=== PATIENT | female | born 1970 | race Caucasian/White ===

== ENCOUNTER 2016-09-08 20:35 | Observation (INO) | payer OTHER ==
[~2016-09-08] VITALS: Ht 160 cm; Wt 72.6 kg
[~2016-09-08 20:35] MED LIST: BENTYL10 MG PO
[2016-09-08] MEDS ORDERED: LEVOTHYROXIN100 MCG PO (20:49)
[2016-09-08] MEDS ORDERED: METFORMIN500 MG PO (20:49)
[2016-09-08 21:29] LABS: URINE BILIRUBIN - DIPSTICK NEGATIVE (NEGATIVE); URINE BLOOD DIPSTICK NEGATIVE (NEGATIVE); URINE CLARITY CLEAR; URINE COLOR YELLOW; URINE GLUCOSE - DIPSTICK NEGATIVE (NEGATIVE); URINE KETONE NEGATIVE (NEGATIVE); URINE LEUK ESTERASE NEGATIVE (NEGATIVE); URINE NITRITE - DIPSTICK NEGATIVE (Negative); URINE PROTEIN - DIPSTICK NEGATIVE (NEG-TRACE); URINE SPECIFIC GRAVITY 1.025; URINE UROBILINOGEN - DIPSTICK 0.2 E.U./dL (0.2)
[2016-09-08 21:36] LABS: HEMATOCRIT 42.2 % (37.0-47.0); HEMOGLOBIN 14.7 g/dl (12.0-16.0); IMMATURE GRANULOCYTES 0.3 % (0.0-1.0); MEAN CELL VOLUME 90.6 fL CALC (80.0-100.0); MEAN CORPUSCULAR HGB 31.5 pG CALC (26.0-32.0); MEAN CORPUSCULAR HGB CONC 34.8 g/L CALC (32.0-36.0); NEUT# 4.5 thou/uL (2.00-7.15); RED BLOOD COUNT 4.66 mill/uL (4.20-5.60); RED CELL DISTRI WIDTH 12.3 % (11.5-15.5)
[2016-09-08 21:42] LABS: ALBUMIN 4.9 g/dL (3.2-5.0); ALKALINE PHOSPHATASE 93 u/l (38-126); AMYLASE 71 u/l (30-110); ANION GAP 17 (6-22 (CALC)); BILIRUBIN, TOTAL 0.5 mg/dL (0.0-1.4); BUN 11 mg/dL (7-17); BUN/CREATININE RATIO 14 (12-20 (CALC)); CALCIUM 9.9 mg/dL (8.4-10.2); CARBON DIOXIDE 26 mmol/l (22-30); CHLORIDE 105 mmol/l (95-108); CREATININE 0.8 mg/dL (0.5-1.0); GFR > 60 ML/MIN (>=60 (CALC)); GFR FOR AFR.AMER. > 60 ML/MIN (>=60 (CALC)); GLUCOSE 98 mg/dL (65-105); LIPASE 195 u/l (23-300); POTASSIUM 4.2 mmol/l (3.5-5.1); SGOT/AST 34 u/l (14-36); SGPT/ALT 41 u/l (9-52); SODIUM 145 mmol/l (137-146); TOTAL PROTEIN 7.9 g/dL (6.3-8.2)
[2016-09-08 21:43] LABS: ACT PARTIAL THROMBO TIME 29.6 SECONDS (20.0-32.5); PROTHROMBIN TIME 10.4 SECONDS (9.0-12.5)
[2016-09-08 21:54] LABS: MYOGLOBIN 38 ng/mL (0 - 62)
[2016-09-08 22:50] VITALS: BP 128/79
[2016-09-09 04:32] VITALS: BP 104/61
[2016-09-09 08:21] VITALS: BP 104/65
== END 2016-09-09 12:00 | disposition home or self-care (01) | DRG 313 ==
LOC: ENPENDDIS → ED 20:35 → ED-I 22:00 → ED 22:18 → MS2 22:19
PROVIDERS: Emergency Medicine; ADMIT Internal Medicine; ATTEND Internal Medicine
DX: R07.9 Chest pain, unspecified (principal); I38 Endocarditis, valve unspecified; K76.0 Fatty (change of) liver, not elsewhere classified; E78.5 Hyperlipidemia, unspecified; E11.9 Type 2 diabetes mellitus without complications; I10 Essential (primary) hypertension; E03.9 Hypothyroidism, unspecified; Z79.84 Long term (current) use of oral hypoglycemic drugs; Z87.891 Personal history of nicotine dependence
CPT/HCPCS: G0378

== ENCOUNTER 2016-10-03 12:38 | Emergency (ER) | payer OTHER ==
[~2016-10-03] VITALS: Ht 160 cm; Wt 80.0 kg
[~2016-10-03 12:38] MED LIST changes: +LEVOTHYROXIN100 MCG PO; +METFORMIN500 MG PO
[2016-10-03] MEDS ORDERED: MOTRIN800 MG PO (13:08)
[2016-10-03 14:13] VITALS: BP 131/88
== END 2016-10-03 14:13 | disposition home or self-care (01) | DRG 563 ==
LOC: ED 12:38
DX: S82.62XA Displaced fracture of lateral malleolus of left fibula, initial encounter for closed fracture (principal); E03.9 Hypothyroidism, unspecified; E11.9 Type 2 diabetes mellitus without complications; E78.5 Hyperlipidemia, unspecified; X50.1XXA Overexertion from prolonged static or awkward postures, initial encounter; Y93.89 Activity, other specified; Y92.009 Unspecified place in unspecified non-institutional (private) residence as the place of occurrence of the external cause

== ENCOUNTER 2017-10-03 19:44 | Emergency (ER) | payer OTHER ==
[~2017-10-03] VITALS: Ht 160 cm; Wt 75.4 kg
[~2017-10-03 19:44] MED LIST changes: +MOTRIN800 MG PO
[2017-10-03] MEDS ORDERED: ASPIRIN LOW DOS81 M1 PO (20:10)
[2017-10-03] MEDS ORDERED: VITAMIN B-122000 MCG PO (20:11)
[2017-10-03] MEDS ORDERED: PRAVASTATIN10 MG PO (20:11)
[2017-10-03] MEDS ORDERED: ANTIBIOTIC PO (20:13)
[2017-10-03 22:44] VITALS: BP 138/75
== END 2017-10-03 22:44 | disposition home or self-care (01) | DRG 607 ==
LOC: ED 19:44
DX: R22.0 Localized swelling, mass and lump, head (principal); T37.0X5A Adverse effect of sulfonamides, initial encounter; I10 Essential (primary) hypertension; E11.9 Type 2 diabetes mellitus without complications; K76.0 Fatty (change of) liver, not elsewhere classified

== ENCOUNTER 2020-05-24 10:21 | Inpatient (IN) | payer BC ==
[~2020-05-24] VITALS: Ht 160 cm; Wt 70.0 kg
[~2020-05-24 10:21] MED LIST changes: +ANTIBIOTIC PO; +ASPIRIN LOW DOS81 M1 PO; +PRAVASTATIN10 MG PO; +VITAMIN B-122000 MCG PO
--- NOTE | 2020-05-24 10:30 | NUR ---
PT TO ROOM VIA W//Cheryl URBANO NOTIFIED
[2020-05-24 11:11] LABS: HEMOGLOBIN 14.4 g/dl (12.0-16.0); IMMATURE GRANULOCYTES 0.3 % (0.0-5.0); MEAN CELL VOLUME 89.9 fL CALC (80.0-100.0); MEAN CORPUSCULAR HGB 30.8 pG CALC (26.0-32.0); MEAN CORPUSCULAR HGB CONC 34.3 g/dL CAL (32.0-36.0); NEUT# 6.01 thou/uL (2.00-7.15); RED BLOOD COUNT 4.67 mill/uL (4.20-5.60)
[2020-05-24 11:13] LABS: GFR > 60 ML/MIN (>=60 (CALC)); GFR FOR AFR.AMER. > 60 ML/MIN (>=60 (CALC))
--- NOTE | 2020-05-24 11:30 | NUR ---
Reassessment of patient completed. No distress noted.
[2020-05-24 11:33] LABS: ALBUMIN 4.9 g/dL (3.2-5.0); ALKALINE PHOSPHATASE 67 u/l (38-126); BILIRUBIN, TOTAL 0.6 mg/dL (0.0-1.4); BUN 13 mg/dL (7-17); BUN/CREATININE RATIO 18 (12-20 (CALC)); C-REACTIVE PROTEIN 8.2 mg/dL (0-0.9); CARBON DIOXIDE 26 mmol/l (22-30); CHLORIDE 95 mmol/l (95-108); CREATININE 0.7 mg/dL (0.5-1.0); GFR > 60 ML/MIN (>=60 (CALC)); GFR FOR AFR.AMER. > 60 ML/MIN (>=60 (CALC)); LIPASE 95 u/l (23-300); POTASSIUM 3.4 mmol/l (3.5-5.1); SGOT/AST 32 u/l (14-36); TOTAL PROTEIN 8.4 g/dL (6.3-8.2)
[2020-05-24 11:36] LABS: HCG SERUM/URINE (NEG/POS) NEGATIVE (NEGATIVE)
[2020-05-24 11:37] LABS: ANION GAP 13 (6-22 (CALC)); SODIUM 131 mmol/l (137-146)
--- NOTE | 2020-05-24 12:30 | NUR ---
Reassessment of patient completed. No distress noted.
--- NOTE | 2020-05-24 13:30 | NUR ---
Reassessment of patient completed. No distress noted.
--- NOTE | 2020-05-24 14:22 | NUR ---
Reassessment of patient completed. No distress noted.
[2020-05-24] MEDS ORDERED: LEVOTHYROXIN100 MCG PO (14:49)
--- NOTE | 2020-05-24 15:03 | NUR ---
Reassessment of patient completed. No distress noted.
--- NOTE | 2020-05-24 15:05 | NUR ---
ATTEMPTED TO CALL REPORT NO ANSWER
--- NOTE | 2020-05-24 15:13 | NUR ---
REPORT RECEIVED FROM LEONA ANGUIANO.
--- NOTE | 2020-05-24 15:13 | NUR ---
REPORT CALLED TO TATYANA
[2020-05-24 15:26] VITALS: BP 116/56
--- NOTE | 2020-05-24 15:26 | NUR ---
PT ARRIVED TO MED/SURG ROOM 266 IN STABLE CONDITION VIA STRETCHER ACCOMPANIED BY ANNMARIERN;PT AMBULATED TO BEDSIDE WITH A STEADY GAIT;WT AND VS OBTAINED AT THIS TIME;PT A&O X4, ORIENTED TO ROOM AND CALL LIGHT SYSTEM;PT REPORTS INCREASED SOB,COUGH,VOMIT, AND LOSS OF TASTE & SMELL X8 DAYS AFTER TRIP TO [place] WITH FAMILY;PT DENIES ANY CURRENT PAIN OR DISCOMFORTS,PAIN SCALE AND REPORTING EDUCATED;ASSESSMENT COMPLETED;RESPIRATIONS SHALLOW ON O2 @ 2L VIA NC,DIMINISHED LUNG SOUNDS NOTED;NON-PRODUCTIVE COUGH;ABDOMEN SOFT ON PALPATION AND ACTIVE IN ALL 4 QUADRANTS,LAST BM 05/24/20;STRONG PEDAL PULSES;SKIN INTACT;TELE MONITORING IN PLACE;#20G TO LAC FLUSHED AND PATENT,SITE APPEARS HEALTHY;ALLERGY BAND APPLIED TO RIGHT ARM;PT DENIES ANY ADDITIONAL NEEDS AND IS ENCOURAGED TO CALL FOR ASSISTANCE IF NEEDED;FALL PRECAUTIONS IN PLACE WITH BED IN THE LOWEST POSITION AND CALL LIGHT IN REACH;WILL CONTINUE TO MONITOR
--- NOTE | 2020-05-24 15:38 | NUR ---
THE MON WAS POWERED DOWN AND I WAS UNABLE TO RETRIEVE VITALS
--- NOTE | 2020-05-24 16:32 | NUR ---
CAMRYN,ANRP AT BEDSIDE
[2020-05-24 16:53] LABS: URINE BILIRUBIN - DIPSTICK NEGATIVE (NEGATIVE); URINE BLOOD DIPSTICK TRACE-LYSED (NEGATIVE); URINE COLOR YELLOW; URINE GLUCOSE - DIPSTICK NEGATIVE (NEGATIVE); URINE KETONE 15 mg/dL (NEGATIVE); URINE LEUK ESTERASE NEGATIVE (NEGATIVE); URINE NITRITE - DIPSTICK NEGATIVE (Negative); URINE PH 6.5 (4.5-8.0); URINE PROTEIN - DIPSTICK TRACE mg/dL (NEG-TRACE); URINE UROBILINOGEN - DIPSTICK 0.2 E.U./dL (0.2)
--- NOTE | 2020-05-24 17:56 | NUR ---
PT APPEARS TO BE SLEEPING IN SEMI FOWLERS POSITION,WAKES EASILY TO VERBAL STIMULI;PT DENIES ANY CURRENT PAIN OR NEEDS;TELE MONITORING IN PLACE;IV SITE PATENT;PT ENCOURAGED TO CALL FOR ASSISTANCE IF NEEDED;CALL LIGHT IN REACH;WILL CONTINUE TO MONITOR
[2020-05-24 19:00] VITALS: BP 108/57
--- NOTE | 2020-05-24 19:18 | NUR ---
SBAR REPORT RECEIVED FROM FOREST WAGGONER
--- NOTE | 2020-05-24 22:55 | NUR ---
RESTING QUIETLY IN BED WATCHING TV. NO DISTRESS NOTED, DENIES PAIN AT THIS TIME. NO CONCERNS EXPRESSED. CALL LIGHT WITHIN REACH
[2020-05-25] VITALS (7 sets, daily range): BP systolic 90–112; BP diastolic 39–63
--- NOTE | 2020-05-25 00:50 | NUR ---
PATIENT RESTING QUIETLY EYES CLOSED. BED IN LOW POSITION, LOCKED. NO DISTRESS NOTED. CALL LIGHT WITHIN REACH.
--- NOTE | 2020-05-25 04:38 | NUR ---
RESTING IN BED. DENIES PAIN AT THIS TIME. NO DISTRESS NOTED. NO CONCERNS EXPRESSED. CALL LIGHT WITHIN REACH.
[2020-05-25 05:08] LABS: HEMATOCRIT 41.9 % (37.0-47.0); IMMATURE GRANULOCYTES 0.5 % (0.0-5.0); MEAN CELL VOLUME 91.3 fL CALC (80.0-100.0); MEAN CORPUSCULAR HGB 30.5 pG CALC (26.0-32.0); MEAN CORPUSCULAR HGB CONC 33.4 g/dL CAL (32.0-36.0); NEUT# 4.24 thou/uL (2.00-7.15); RED BLOOD COUNT 4.59 mill/uL (4.20-5.60); RED CELL DISTRI WIDTH 13.2 % (11.5-15.5)
[2020-05-25 05:43] LABS: ALBUMIN 4.2 g/dL (3.2-5.0); ALKALINE PHOSPHATASE 56 u/l (38-126); ANION GAP 12 (6-22 (CALC)); BILIRUBIN, TOTAL 0.5 mg/dL (0.0-1.4); BUN 11 mg/dL (7-17); BUN/CREATININE RATIO 17 (12-20 (CALC)); C-REACTIVE PROTEIN 7.4 mg/dL (0-0.9); CARBON DIOXIDE 27 mmol/l (22-30); CHLORIDE 101 mmol/l (95-108); CREATININE 0.6 mg/dL (0.5-1.0); GFR > 60 ML/MIN (>=60 (CALC)); GFR FOR AFR.AMER. > 60 ML/MIN (>=60 (CALC)); POTASSIUM 3.8 mmol/l (3.5-5.1); SGOT/AST 28 u/l (14-36); SODIUM 137 mmol/l (137-146)
--- NOTE | 2020-05-25 07:57 | NUR ---
RECIEVED REPORT FROM LEONA JEAN. PT RESTING IN SEMI FOWLERS POSITION. PT IS A/O X3. ASSESSMENT AND VITALS COMPLETED. BP 90/54, HR 70, O2 94% ON 2L NC. RESPIRATIONS ARE EVEN AND UNLABORED WITH NO DISTRESS NOTED. HEART RHYTHM IS NORMAL WITH TELE IN PLACE, SR PER ER MONITORING. BOWEL SOUNDS ARE ACTIVE IN ALL QUADRANTS, PT REPORTS HAVING DIARRHEA THIS MORNING. #20G IN RAC FLUSHED, SITE APPEARS HEALTHY AND PATENT. RADIAL AND PEDAL PULSES ARE SRONG.SKIN IS WARM AND INTACT. PT COMPLAINS OF 5/10 PAIN IN BACK, TYLENOL TO BE ADMINISTERED. PT DENIES OF OTHER PAINS OR DISCOMFORTS. ALL SAFTEY AND ISOLATION PRECAUTIONS ARE IN PLACE. WILL CONTINUE TO MONITOR.
--- NOTE | 2020-05-25 12:03 | NUR ---
PT RESTING IN SEMI FOWLERS POSITION. RESPIRATIONS ARE EVEN AND UNLABORED ON 2L NC. PT DENIES OF ANY PAINS OR DISCOMFORTS AT THIS TIME. IV ANTIBOTICS INFUSING WITH EASE, SITE APPEARS HEALTHY AND PATENT. TELE MONITORING IN PLACE. ALL SAFETY PRECAUTIONS ARE IN PLACE WITH CALL LIGHT IN REACH. WILL CONTINUE TO MONITOR
--- NOTE | 2020-05-25 17:12 | NUR ---
PT RESTING IN SEMI FOWLERS POSITION. RESPIRATIONS ARE EVEN AND UNLABORED ON 2L NC. #20G IN RFA REMAINS HEALTHY AND PATENT. TELE MONITORING IN PLACE, SR PER ER MONITORING. PT DENIES OF ANY PAINS OR DISCOMFORTS. ALL SAFETY PRECAUTIONS ARE IN PLACE WITH CALL LIGHT IN REACH. WILL CONTINUE TO MONITOR
--- NOTE | 2020-05-25 23:14 | NUR ---
PT RESTING QUIETLY IN BED, PT REPORTS " I AM FREEZING, I JUST CAN'T WARM UP" THIS NURSE NOTED THAT PTS FACE WAS VERY FLUSHED AND HER SKIN WAS WARM TO THE TOUCH. TEMPERATURE CHECKED, 100.4. ADMINSTRATED TYLENOL PO. MEDICATION WAS EFFECTIVE, TEMP RECHECK WAS 98.4. WILL CONTINUE TO MONITOR
--- NOTE | 2020-05-26 01:12 | NUR ---
PT RESTING IN BED AT THIS TIME. C/O NAUSEA EARLIER AND WAS TREATED WITH ZOFRAN. PT C/O FOUL SMELLING FREQUENT DIARRHEA. STOOL SAMPLE OBTAINED FOR CULTURE TO RULE OUT C-DIFF. PENDING RESULTS. TEMPERATURE IN 98.7 AND WNL. PT INDICATES SHE IS FEELING BETTER SINCE THE ADMINSTRATION OF THE ZOFRAN AND TYLENOL. WILL CONTINUE TO MONITOR.
--- NOTE | 2020-05-26 04:00 | NUR ---
PT IS RESTING QUIETLY WITH HER EYES CLOSED. NO COMPLAINTS VOICED AT THIS TIME. NO S/S OF DISTRESS. DENIES SHORTNESS OF BREATH. NON-PRODUCTIVE COUGH. IV REMAINS TO RAC, FLUSHES WELL. WILL MONITOR
[2020-05-26 04:30] VITALS: BP 106/63
--- NOTE | 2020-05-26 05:28 | NUR ---
NURSE WAS ADVISED BY ASSIGNED FINANCE VICE PRESIDENT THAT PT WAS RUNNING A LOW GRADE TEMP OF 99.1. PT IS ASYMPTOMATIC FOR TEMP. WILL MONITOR FOR ANY INCREASE IN TEMP.
[2020-05-26 06:00] LABS: HEMATOCRIT 40.4 % (37.0-47.0); HEMOGLOBIN 13.2 g/dl (12.0-16.0); MEAN CELL VOLUME 92.4 fL CALC (80.0-100.0); MEAN CORPUSCULAR HGB 30.2 pG CALC (26.0-32.0); MEAN CORPUSCULAR HGB CONC 32.7 g/dL CAL (32.0-36.0); RED BLOOD COUNT 4.37 mill/uL (4.20-5.60); RED CELL DISTRI WIDTH 13.2 % (11.5-15.5)
[2020-05-26 06:07] LABS: BUN 11 mg/dL (7-17); BUN/CREATININE RATIO 15 (12-20 (CALC)); CARBON DIOXIDE 27 mmol/l (22-30); CHLORIDE 100 mmol/l (95-108); CREATININE 0.7 mg/dL (0.5-1.0); GFR > 60 ML/MIN (>=60 (CALC)); GFR FOR AFR.AMER. > 60 ML/MIN (>=60 (CALC)); MAGNESIUM 2.3 mg/dL (1.6-2.3); SODIUM 136 mmol/l (137-146)
[2020-05-26 06:08] LABS: ANION GAP 13 (6-22 (CALC)); POTASSIUM 3.5 mmol/l (3.5-5.1)
[2020-05-26 07:41] VITALS: BP 107/55
--- NOTE | 2020-05-26 07:41 | NUR ---
PATIENT RESTING IN BED AT THIS TIME CALL LIGHT WITHIN REACH DENIES ANY PAIN. SIDERAILS UP X2 CONTRACT MANAGER DONE SEE INTERVENTIONS AT THIS TIME.
[2020-05-26 11:10] VITALS: BP 89/52
--- NOTE | 2020-05-26 12:15 | NUR ---
PATIENT RESTING IN BED DENIES ANY NEEDS CURRENTLY AT THIS TIME SIDERAILS UP CALL LIGHT WITHIN REACH.
--- NOTE | 2020-05-26 15:53 | NUR ---
PATIENT RESTING IN BED AT THIS TIME PATIENT DENIES ANY PAIN AT THIS TIME AND DENIES ANY NEEDS. PATIENT STATES SHE IS NOT SHORT OF BREATH AND FEEL "A LITTLE BETTER". CALL LIGHT WITHIN REACH SIDERAILS UP X2 PATIENT REMAINS IN ISOLATION DUE OT COVID-19 POSITIVE.
[2020-05-26 16:10] VITALS: BP 105/63
--- NOTE | 2020-05-26 19:33 | NUR ---
PHYSICAL ASSESMENT COMPLETE. PT CURRENTLY DENIES PAIN OR DISCOMFORT. SCHEDULED MEDICATIONS AND PRN MEDICATION ADMINISTERED, SEE E-MAR. PT DENIES ANY NEEDS AT THIS TIME. PLAN OF CARE REVIEWED, PT DENIES QUESTIONS, VERBALIZES UNDERSTANDING. ITEMS WITHIN REACH, BED LOCKED IN LOW POSITION W/ BEDRAILS UP X2. CALL JORGENSEN WITHIN REACH, AGREES TO CALL PRN.
[2020-05-26 20:00] VITALS: BP 102/64
[2020-05-26 22:05] LABS: C. DIFFICILE TOXIN A&B NEGATIVE (NEGATIVE)
[2020-05-26 23:50] VITALS: BP 94/52
--- NOTE | 2020-05-27 00:08 | NUR ---
CPT LAYING IN BED WITH EYES CLOSED, APPEARS TO BE SLEEPING, APPEARS COMFORTABLE AND IN NO DISTRESS. RESPIRATIONS REGULAR AND UNLABORED. ITEMS REMAIN WITHIN REACH, CALL JORGENSEN REMAINS WITHIN REACH. BED REMAINS LOCKED AND IN LOW POSITION WITH BEDRAILS UP X2. WILL CONTINUE TO MONITOR.
[2020-05-27 03:50] VITALS: BP 88/54
--- NOTE | 2020-05-27 04:02 | NUR ---
PT RESTING IN BED, NO SIGNS OF DISTRESS NOTED, RESP EVEN AND UNLABORED. PT VOICES NO NEEDS OR COMPLAINTS AT THIS TIME. CALL LIGHT IN REACH, CONTINUE TO MONITOR.
[2020-05-27 04:53] LABS: HEMATOCRIT 39.1 % (37.0-47.0); IMMATURE GRANULOCYTES 0.9 % (0.0-5.0); MEAN CELL VOLUME 92.7 fL CALC (80.0-100.0); MEAN CORPUSCULAR HGB 30.8 pG CALC (26.0-32.0); MEAN CORPUSCULAR HGB CONC 33.2 g/dL CAL (32.0-36.0); NEUT# 6.63 thou/uL (2.00-7.15); RED BLOOD COUNT 4.22 mill/uL (4.20-5.60); RED CELL DISTRI WIDTH 13.2 % (11.5-15.5)
[2020-05-27 05:15] LABS: ALKALINE PHOSPHATASE 51 u/l (38-126); BILIRUBIN, TOTAL 0.6 mg/dL (0.0-1.4); BUN 10 mg/dL (7-17); BUN/CREATININE RATIO 17 (12-20 (CALC)); C-REACTIVE PROTEIN 7.5 mg/dL (0-0.9); CARBON DIOXIDE 27 mmol/l (22-30); CHLORIDE 100 mmol/l (95-108); CREATININE 0.6 mg/dL (0.5-1.0); GFR > 60 ML/MIN (>=60 (CALC)); GFR FOR AFR.AMER. > 60 ML/MIN (>=60 (CALC)); POTASSIUM 3.7 mmol/l (3.5-5.1); SGOT/AST 26 u/l (14-36); TOTAL PROTEIN 6.8 g/dL (6.3-8.2)
[2020-05-27 05:31] LABS: ANION GAP 12 (6-22 (CALC)); SODIUM 135 mmol/l (137-146)
[2020-05-27 08:00] VITALS: BP 98/50
--- NOTE | 2020-05-27 08:00 | NUR ---
PATIENT RESTING IN THE BED AXOX3, DENIES PAIN. O2 NC INUSE, NO RESP DISTRESS NOTED AT THIS TIME. ENCOURAGED TO USE ISSU. REPOSITIONED FOR COMFORT. SIDE RAILS UP CALL LIGHT IN REACH BED LOCKED IN LOW POSITION, ALL SAFETY MEASURES IN PLACE. WILL CONTINUE TO MONITOR THE PATIENT.
[2020-05-27 11:30] VITALS: BP 114/50
--- NOTE | 2020-05-27 12:30 | NUR ---
PATIENT SITTING UP IN BED EATING LUNCH, NO RESP DISTRESS NOTED AT THIS TIME. WILL CONTINUE TO MONIOTR THE PATIENT.
--- NOTE | 2020-05-27 13:58 | NUR ---
C/O PAIN MED PER ORDER. EDUCATED ON USE OF INHALER. WILL CONTINUE TO MONIOTR THE PATIENT.
[2020-05-27 15:42] VITALS: BP 83/44
--- NOTE | 2020-05-27 16:09 | NUR ---
PT STATES SHE IS FEELING BETTER NOW'THE tYLENOL HELPED' . EDUCATED ON IV MEDICATION, AND IV FLIUDS. REPOSITIOEND FOR COMFORT. NO RESP DISTRESS NOTED AT THIS TIME. WILL CONTINUE TO MONIOTR THE PATIENT.
[2020-05-27 20:00] VITALS: BP 104/66
[2020-05-28] VITALS: BP 99/58
[2020-05-28 04:00] VITALS: BP 116/67
[2020-05-28 05:41] LABS: ALBUMIN 3.8 g/dL (3.2-5.0); ALKALINE PHOSPHATASE 52 u/l (38-126); ANION GAP 11 (6-22 (CALC)); BILIRUBIN, TOTAL 0.6 mg/dL (0.0-1.4); BUN 12 mg/dL (7-17); BUN/CREATININE RATIO 20 (12-20 (CALC)); CARBON DIOXIDE 29 mmol/l (22-30); CHLORIDE 102 mmol/l (95-108); CREATININE 0.6 mg/dL (0.5-1.0); GFR > 60 ML/MIN (>=60 (CALC)); GFR FOR AFR.AMER. > 60 ML/MIN (>=60 (CALC)); POTASSIUM 4.1 mmol/l (3.5-5.1); SGOT/AST 24 u/l (14-36); SODIUM 138 mmol/l (137-146); TOTAL PROTEIN 6.7 g/dL (6.3-8.2)
[2020-05-28 05:43] LABS: HEMATOCRIT 40.5 % (37.0-47.0); MEAN CELL VOLUME 94.6 fL CALC (80.0-100.0); MEAN CORPUSCULAR HGB 30.4 pG CALC (26.0-32.0); MEAN CORPUSCULAR HGB CONC 32.1 g/dL CAL (32.0-36.0); RED BLOOD COUNT 4.28 mill/uL (4.20-5.60); RED CELL DISTRI WIDTH 13.2 % (11.5-15.5)
[2020-05-28 08:02] VITALS: BP 116/67
--- NOTE | 2020-05-28 08:08 | NUR ---
PT RESTING IN THE BED AXOX3, NOTED NO RESP DISTRESS NO SOB. PATIENT DENIES PAIN AT THIS TIME. O22L PL OX 90% INCREASED O2 TO 3L O2 SAT 94%. INCOURAGED TO USE ISSU. IV INFUSING. DENIES NAUSEA DENIES VOMITING. REPOSITIOEND FOR COMFORT, SIDE RAILS UP CALL LIGHT IN REACH, BED LOCKED IN LOW POSITION. ALL SAFTY MEASURES IN PLACE. WILL CONTINUE TO MONIOTR THE PATIENT.
[2020-05-28 10:56] VITALS: BP 86/52
--- NOTE | 2020-05-28 11:58 | NUR ---
PT RESTING COMFORTABLE NO DISTRESS NOTED AT THIS TIME. WILL CONTINUE TO MONITOR THE PATIENT.
--- NOTE | 2020-05-28 15:52 | NUR ---
IV TO HL PER ORDER.
[2020-05-28 16:04] VITALS: BP 104/65
[2020-05-28 19:00] VITALS: BP 122/60
[2020-05-29] VITALS: BP 123/74
[2020-05-29 04:00] VITALS: BP 127/65
[2020-05-29 05:45] LABS: HEMATOCRIT 40.3 % (37.0-47.0); HEMOGLOBIN 12.7 g/dl (12.0-16.0); MEAN CELL VOLUME 94.2 fL CALC (80.0-100.0); MEAN CORPUSCULAR HGB 29.7 pG CALC (26.0-32.0); MEAN CORPUSCULAR HGB CONC 31.5 g/dL CAL (32.0-36.0); NEUT# 4.17 thou/uL (2.00-7.15); RED BLOOD COUNT 4.28 mill/uL (4.20-5.60); RED CELL DISTRI WIDTH 13.6 % (11.5-15.5)
[2020-05-29 05:48] LABS: IMMATURE GRANULOCYTES 6.6 % (0.0-5.0)
[2020-05-29 05:58] LABS: ALBUMIN 3.5 g/dL (3.2-5.0); ALKALINE PHOSPHATASE 51 u/l (38-126); ANION GAP 13 (6-22 (CALC)); BILIRUBIN, TOTAL 0.6 mg/dL (0.0-1.4); BUN 14 mg/dL (7-17); BUN/CREATININE RATIO 23 (12-20 (CALC)); CARBON DIOXIDE 25 mmol/l (22-30); CHLORIDE 102 mmol/l (95-108); CREATININE 0.6 mg/dL (0.5-1.0); GFR > 60 ML/MIN (>=60 (CALC)); GFR FOR AFR.AMER. > 60 ML/MIN (>=60 (CALC)); POTASSIUM 3.9 mmol/l (3.5-5.1); SGOT/AST 22 u/l (14-36); SODIUM 136 mmol/l (137-146); TOTAL PROTEIN 6.1 g/dL (6.3-8.2)
[2020-05-29 08:57] VITALS: BP 102/62
--- NOTE | 2020-05-29 08:57 | NUR ---
PT SITTING IN BED. A&O X3. NO DISTRESS NOTED. FLUSHED APPEARANCE NOTED BUT AFEBRILE AT THIS TIME. O2 VIA NC @3L, SUSTAINING 91-92%. ENCOURAGED PT TO USE I.S DEVICE. PT DEMONSTARTING PROPER USE OF DEVICE. PT ACHIEVEING 500, GOAL SET AT 1000. X10 REPITITIONS. PT ALSO ENCOURGAED TO SIT IN CHAIR. CLEAR/DIMINISHED BREATH SOUNDS UPON AUSCULTATION. #20 RAC HEALTHY AND PATENT. TEAM LEADER SURGERY IN PLACE. ASSESSMENT COMPLETED. DISCUSSED POC. CALL LIGHT LEFT WITHIN REACH.
--- NOTE | 2020-05-29 09:37 | NUR ---
DR LÓPEZ AND Shaylee SWAN APRN AT BEDSIDE
[2020-05-29 10:30] VITALS: BP 97/46
--- NOTE | 2020-05-29 11:29 | NUR ---
PT SITTING IN CHAIR. PT C/O OF "DULL HEADACHE" 11/14. TYLENOL TO BE GIVEN. PT DENIES ANY OTHER NEEDS AT THIS TIME. ROCEPHIN INITIATED TO #20 RAC, IV SITE HEALTHY AND PATENT. CALL LIGHT LEFT WITHIN REACH.
--- NOTE | 2020-05-29 17:23 | NUR ---
NEW IV TO LAC #22 X1 ATTEMPT BY THIS STAGE RIGGER. HEALTHY AND PATENT. #20 RAC REMOVED. IV INTACT UPON REMOVAL.
[2020-05-29 19:00] VITALS: BP 111/63
--- NOTE | 2020-05-29 20:25 | NUR ---
PATIENT RESTING IN BED AT THIS TIME-AWAKE ALERT AND ORIENTEDX3 ON ISOLATION IN NEG PRESSURE FOR COVID. O2 VIA NASAL CANNULA IN PLACE AT [id number] SAT IS 90% AT THIS TIME. PATIENT STATES THAT SHE WAS JUST UP TO THE BR AND DOES GET SOB WITH LITTLE OR NO EXHERSION. NON-PRODUCTIVE COUGH NOTED. TELE MONITOR IN PLACE. SALINE LOCK TO LEFT AC IS INTACT AND APPEARS HEALTHY AT THIS TIME. VOIDING QS YELLOW URINE IN BR. STATES THAT SHE WAS HAVING LOOSE STOOLS EARLIER IN THE DAY BUT THAT HAS SLOWED DOWN. LUNGS ARE CLEAR. NO PERIPHERAL EDEMA NOTED AND PULSES ARE PALPABLE. SAFETY PRECAUTIONS REINFORCED. CALL LIGHT IN REACH. WILL CONT TO MONITOR.
[2020-05-30] VITALS: BP 125/77
--- NOTE | 2020-05-30 | NUR ---
PATIENT RESTING IN BED WITH O2 VIA NASAL CANNULA IN PLACE-APPEARS SLEEPING WITH EYES CLOSED. TELE MONITOR IN PLACE. CALL LIGHT IN REACH. WILL CONT TO MONITOR.
[2020-05-30 04:00] VITALS: BP 100/57
--- NOTE | 2020-05-30 04:26 | NUR ---
PATIENT RESTING IN BED AT THIS TIME. VS WERE TAKEN AND RECORDED. O2 VIA NASAL CANNULA IN PLACE AT 3LPM. TELE MONITOR IN PLACE. PROVIDED WITH CRACKERS AND DIET SODA PER PATIENT REQUEST. CALL LIGHT IN REACH. WILL CONT TO MONITOR.
[2020-05-30 05:46] LABS: HEMATOCRIT 44.9 % (37.0-47.0); HEMOGLOBIN 14.4 g/dl (12.0-16.0); MEAN CELL VOLUME 94.3 fL CALC (80.0-100.0); MEAN CORPUSCULAR HGB 30.3 pG CALC (26.0-32.0); MEAN CORPUSCULAR HGB CONC 32.1 g/dL CAL (32.0-36.0); RED BLOOD COUNT 4.76 mill/uL (4.20-5.60)
[2020-05-30 06:16] LABS: ANION GAP 15 (6-22 (CALC)); BUN 14 mg/dL (7-17); BUN/CREATININE RATIO 20 (12-20 (CALC)); CARBON DIOXIDE 30 mmol/l (22-30); CHLORIDE 98 mmol/l (95-108); CREATININE 0.7 mg/dL (0.5-1.0); GFR > 60 ML/MIN (>=60 (CALC)); GFR FOR AFR.AMER. > 60 ML/MIN (>=60 (CALC)); MAGNESIUM 2.4 mg/dL (1.6-2.3); POTASSIUM 4.5 mmol/l (3.5-5.1); SODIUM 138 mmol/l (137-146)
--- NOTE | 2020-05-30 07:30 | NUR ---
RECIEVED REPORT FROM LEONA LOPEZ
[2020-05-30 08:26] VITALS: BP 92/61
--- NOTE | 2020-05-30 08:26 | NUR ---
PT RESTING IN SEMI FOWLERS POSITION. PT IS A/O X3.ASSESSMENT AND VITALS COMPLETED. BP 92/61, HR 75, O2 92% ON 3L NC. RSPIRATIONS ARE EVEN AND UNLABORED WITH NO DISTRESS NOTED. LUNG SOUNDS ARE CLEAR/DIMINISHED. HEART RHYTHM NORMAL WITH TELE MONITORING IN PLACE, SR PER ER MONITORING. BOWEL SOUNDS ACTIVE. RADIAL AND PEDAL PUSLES STRONG. #22G IN LAC FLUSHED, SITE APPEARS HEALTHY AND PATENT. SKIN IS WARM AND INTACT. ACCUCHECK RESUTLING IN 110, NO COVERAGED NEEDED. PT DENIES OF ANY PAINS OR DISCOMFORTS. ALL SAFETY PRECAUTIONS ARE IN PLACE WITH CALL LIGHT IN REACH. INSTRUCTED PT TO CALL FOR ASSISTANCE IF NEEDED. WILL CONTINUE TO MONITOR.
--- NOTE | 2020-05-30 09:28 | NUR ---
DR LÓPEZ AND ROSALBA COWAN AT BEDSIDE
[2020-05-30 10:55] VITALS: BP 107/47
--- NOTE | 2020-05-30 11:43 | NUR ---
PT SITTING IN CHAIR WATCHING TV. RESPIRATIONS ARE EVEN AND UNLABORED ON 3L NC WITH NO DISTRESS NOTED.IV ANTIBIOTICS INFUSING WITH EASE, SITE REMAINS HEALTHY AND PATENT. TELE MONITORING IN PLACE. PT DENEIS OF ANY PAINS OR DISCOMFORTS AT THIS TIME. ALL SAFETY PRECAUTIONS ARE IN PLACE WITH CALL LIGHT IN REACH. PT INSTRUCTED TO CALL FOR ASSISTANCE. WILL CONTINUE TO MONITOR.
[2020-05-30 14:23] VITALS: BP 115/48
--- NOTE | 2020-05-30 15:50 | NUR ---
IV ANTIBIOTICS COMPLETED. #22G LAC FLUSHED, SITE REMAINS HEALTHY AND PATENT. RESPIRATIONS ARE EVEN AND UNLABORED ON 3L NC. TELE MONITORING IN PLACE. PT DENIES OF ANY PAINS OR DISCOMFORTS. PT REPORTS NORMAL BM.ALL SAFETY PRECAUTIONS ARE IN PLACE WITH CALL LIGHT IN REACH. PT INSTRUCTED TO CALL FOR ASSISTANCE. WILL CONTINUE TO MONITOR.
[2020-05-30 19:00] VITALS: BP 106/46
--- NOTE | 2020-05-30 19:35 | NUR ---
PATIENT RESTING IN BED AT THIS TIME-AWAKE ALERT AND ORIENTEDX3 WITH O2 VIA NASAL CANNULA IN PLACE AT 3LPM. O2 SAT IS 94%. PATIENT IS ON ISOLATION IN NEG PRESSURE ROOM FOR COVID. TELE MONITOR IN PLACE. STILL SOB WITH EXHERSION. SALINE LOCK TO RAC INTACT AND REMAINS HEALTHY AT THIS TIME. SAFETY PRECAUTIONS REINFORCED. CALL LIGHT IN REACH. WILL CONT TO MONITOR.
--- NOTE | 2020-05-30 21:00 | NUR ---
PATIENT RESTING IN TPP-[id number] 223. NO SLIDING SCALE COVERAGE NOTED. HS SNACK PROVIDED. CALL LIGHT IN REACH. WILL CONT TO MONITOR.
[2020-05-31] VITALS: BP 122/52
--- NOTE | 2020-05-31 | NUR ---
PATIENT RESTING IN BED AT THIS TIME WITH O2 VIA NASAL CANNULA IN PLACE. RESPS ARE EVEN AND UNLABORED. CALL LIGHT IN REACH. WILL CONT TO MONITOR
[2020-05-31 04:00] VITALS: BP 100/52
--- NOTE | 2020-05-31 04:57 | NUR ---
PATIENT RESTING IN BED WITH O2 VIA NASAL CANNULA AT 3LPM. NO COMPLAINTS AT THIS TIME. TELE MONITOR IN PLACE. SALINE LOCK TO RAC INTACT. CALL LIGHT IN REACH. WILL CONT TO MONITOR.
[2020-05-31 05:46] LABS: HEMATOCRIT 43.3 % (37.0-47.0); IMMATURE GRANULOCYTES 5.7 % (0.0-5.0); MEAN CELL VOLUME 92.7 fL CALC (80.0-100.0); MEAN CORPUSCULAR HGB CONC 32.3 g/dL CAL (32.0-36.0); NEUT# 5.96 thou/uL (2.00-7.15); RED BLOOD COUNT 4.67 mill/uL (4.20-5.60)
[2020-05-31 06:09] LABS: ALBUMIN 3.7 g/dL (3.2-5.0); ALKALINE PHOSPHATASE 57 u/l (38-126); ANION GAP 14 (6-22 (CALC)); BILIRUBIN, TOTAL 0.6 mg/dL (0.0-1.4); BUN 16 mg/dL (7-17); BUN/CREATININE RATIO 29 (12-20 (CALC)); C-REACTIVE PROTEIN 1.3 mg/dL (0-0.9); CARBON DIOXIDE 25 mmol/l (22-30); CHLORIDE 100 mmol/l (95-108); CREATININE 0.5 mg/dL (0.5-1.0); GFR > 60 ML/MIN (>=60 (CALC)); GFR FOR AFR.AMER. > 60 ML/MIN (>=60 (CALC)); POTASSIUM 4.6 mmol/l (3.5-5.1); SGOT/AST 35 u/l (14-36); SODIUM 135 mmol/l (137-146); TOTAL PROTEIN 6.5 g/dL (6.3-8.2)
--- NOTE | 2020-05-31 09:00 | NUR ---
PT RESTING IN THE BEDSIDE CHAIR STATES SHE IS GOING HOME TO DAY. AXOX3 DENIES PAIN. O2 IN PLACE, CALL LIGHT IN REACH. WILL CONTINUE TO MONIOTR THE PATIENT.
[2020-05-31 10:35] VITALS: BP 126/72
[2020-05-31] MEDS ORDERED: DEXAMETHASON6 MG PO (11:00)
[2020-05-31] MEDS ORDERED: EC ASPIRIN325 MG PO (11:01)
[2020-05-31 11:13] VITALS: BP 92/53
--- NOTE | 2020-05-31 15:30 | NUR ---
HL AND TELE REMOVED. PT HAS A DISCHARGE ORDER TO GO HOME ON 02. O2 DELIVERED TO THE HOSPITAL SO PT CAN LEAVE WITH HER OWN O2.
--- NOTE | 2020-05-31 16:06 | NUR ---
DISCHARGE ORDERS GIVEN UNDERSTOOD AND SIGHNED BY THE PT . PT LEFT WITH HOME O2 TO GO TO HER OWN HOME WITH HER FAMILY.
== END 2020-05-31 16:05 | disposition home or self-care (01) | DRG 177 ==
LOC: ED 10:21 → ED-I 13:06 → ED 13:20 → MS2 13:21
PROVIDERS: Family Medicine; Nurse Practitioner; Nurse Practitioner Family; ADMIT Internal Medicine; ATTEND Internal Medicine
PROC: XW033E5 Introduction of Remdesivir Anti-infective into Peripheral Vein, Percutaneous Approach, New Technology Group 5 (ICD-10-PCS; principal; 2020-05-27)
DX: U07.1 COVID-19 (principal); J12.82 Pneumonia due to coronavirus disease 2019; J96.01 Acute respiratory failure with hypoxia; E11.9 Type 2 diabetes mellitus without complications; I10 Essential (primary) hypertension; K76.0 Fatty (change of) liver, not elsewhere classified; R19.7 Diarrhea, unspecified; E03.9 Hypothyroidism, unspecified; Z87.891 Personal history of nicotine dependence
CPT/HCPCS: J1650; Q9967

== ENCOUNTER 2020-10-28 01:12 | Emergency (ER) | payer BC ==
[~2020-10-28] VITALS: Ht 160 cm; Wt 70.0 kg
[~2020-10-28 01:12] MED LIST changes: +DEXAMETHASON6 MG PO; +EC ASPIRIN325 MG PO
[2020-10-28] MEDS ORDERED: ZETIA10 MG PO (02:02)
[2020-10-28] MEDS ORDERED: LEVOTHYROXIN50 MCG PO (02:02)
[2020-10-28] MEDS ORDERED: AMOXICILLIN500 M2 PO (02:54)
[2020-10-28 03:15] VITALS: BP 142/72
== END 2020-10-28 03:15 | disposition home or self-care (01) | DRG 153 ==
LOC: ED 01:12
DX: J06.9 Acute upper respiratory infection, unspecified (principal); H66.92 Otitis media, unspecified, left ear; E11.9 Type 2 diabetes mellitus without complications; I10 Essential (primary) hypertension; E78.00 Pure hypercholesterolemia, unspecified; K76.0 Fatty (change of) liver, not elsewhere classified; Z20.822 Contact with and (suspected) exposure to COVID-19